=== PATIENT | male | born 1995 | race African-American/Black ===

== ENCOUNTER 2025-03-15 14:11 | Emergency (ER) | payer SELFPAY ==
[~2025-03-15] VITALS: Ht 170.2 cm; Wt 72.6 kg
[2025-03-15 14:17] VITALS: BP 115/64
[2025-03-15] MEDS ORDERED: LORAZEPAM 1 MG TABLET ONE (17:18)
[2025-03-15 17:21] LABS: PLATELET COUNT (AUTO) 268 K/uL (152-348); RED BLOOD CELL COUNT(AUTO) 4.83 MIL/uL (4.06-5.63); RED CELL DISTRIBUTION WIDTH 14.1 % (12.1-16.2); WHITE BLOOD COUNT (AUTO) 9.4 K/uL (3.6-10.2)
[2025-03-15] MEDS: LORAZEPAM 0.5 MG TABLET PO ONE (17:22)
[2025-03-15 17:31] LABS: CREATININE 1.1 mg/dL (0.6-1.3); SODIUM SERUM 141.0 mmol/L (136-145); UREA NITROGEN, BLOOD 13.0 mg/dL (7-18)
[2025-03-15] MEDS ORDERED: diphenhydrAMINE 50 MG/1 ML VIAL ONE (18:23)
[2025-03-15] MEDS ORDERED: LORA-259 PO (18:38)
[2025-03-15] MEDS ORDERED: HYDR25SU13 RC (18:58)
[2025-03-15 19:03] VITALS: BP 110/60; TEMP 98.1; O2SAT 100
== END 2025-03-15 19:05 | disposition home or self-care (01) ==
LOC: ER 14:11
DX: F43.0 Acute stress reaction (principal); K64.8 Other hemorrhoids; R00.2 Palpitations
CPT/HCPCS: 36415; 85025; A4606; A4663; J1200